=== PATIENT | female | born 1980 | race African-American/Black ===

== ENCOUNTER 2018-06-19 20:02 | Emergency (ER) | payer OTHER ==
[~2018-06-19] VITALS: Ht 162.6 cm; Wt 100.0 kg
[2018-06-19 21:17] LABS: APPEARANCE,URINE TURBID (CLEAR); GLUCOSE, URINE (UA) NEGATIVE (NEGATIVE); KETONES,URINE 40 mg/dL (NEGATIVE); LEUKOCYTE ESTERASE ,URINE LARGE (NEGATIVE); NITRATE,URINE POSITIVE (NEGATIVE); OCCULT BLOOD,URINE LARGE (NEGATIVE); PROTEIN,URINE SEE CONFIRM (NEGATIVE)
[2018-06-19 21:24] LABS: BILIRUBIN,URINE PRELIM. POSITIVE (NEGATIVE)
[2018-06-19 21:26] LABS: SULFOSALICYLIC ACID,URINE 4+ (Negative)
[2018-06-19 21:27] LABS: RBC,URINE Full Field /HPF (0-2)
[2018-06-19 21:31] LABS: BACTERIA,URINE Moderate /HPF (None Seen); SQUAMOUS EPITHELIAL CELL,UR Rare /LPF (None Seen)
[2018-06-19] MEDS ORDERED: ACETAMINOPHEN 500 MG TABLET PO ONE (22:15)
[2018-06-19] MEDS ORDERED: PHENAZOPYRIDINE HCL 100 MG TABLET PO ONE (22:15)
[2018-06-19] MEDS ORDERED: CIPROFLOXACIN HCL 250 MG TABLET PO ONE (22:15)
[2018-06-19 23:06] VITALS: BP 139/100
== END 2018-06-19 23:21 | disposition home or self-care (01) ==
LOC: EMS 20:04
DX: N39.0 Urinary tract infection, site not specified (principal); Z88.0 Allergy status to penicillin; Z88.5 Allergy status to narcotic agent; Z88.8 Allergy status to other drugs, medicaments and biological substances
CPT/HCPCS: 87086